=== PATIENT | male | born 1980 | race Two or more races ===

== ENCOUNTER 2018-02-18 10:09 | Outpatient (CLI) | payer OTHER ==
[~2018-02-18] VITALS: Ht 177.8 cm; Wt 95.3 kg
== END 2018-02-18 10:25 | disposition home or self-care (01) ==
LOC: OFIC 805 10:09
DX: R13.19 Other dysphagia (principal); R49.0 Dysphonia; R07.0 Pain in throat; K21.9 Gastro-esophageal reflux disease without esophagitis

== ENCOUNTER 2018-10-11 16:32 | Outpatient (CLI) | payer OTHER ==
[~2018-10-11] VITALS: Ht 152.4 cm; Wt 95.3 kg
== END 2018-10-11 16:45 | disposition home or self-care (01) ==
LOC: OFIC 805 16:32
DX: J34.3 Hypertrophy of nasal turbinates (principal); J30.89 Other allergic rhinitis; R09.81 Nasal congestion; J34.89 Other specified disorders of nose and nasal sinuses

== ENCOUNTER 2023-10-27 06:37 | Day surgery (SDC) | payer OTHER ==
[2023-10-26 09:44] LABS: PH,URINE 5.5 (5.0-8.0); URINE APPEARANCE Clear; URINE BILIRRUBIN Negative (NEGATIVE); URINE BLOOD Negative; URINE COLOR Yellow; URINE GLUCOSE Negative (NEGATIVE); URINE LEUKOCYTE Negative; URINE NITRATE Negative; URINE PROTEIN Negative (NEGATIVE); URINE UROBILINOGEN 0.2 E.U./dl
[2023-10-26 09:46] LABS: URINE BACTERIA 12.5 uL (0.0-1933); URINE RBC 3.5 uL (0.0-20.8)
[2023-10-26 09:53] LABS: URINE EPITHELIAL CELLS 0.4 uL (0.0-38.8)
[2023-10-26 10:01] LABS: HEMOGLOBIN 14.8 g/dL (13-16.00); MEAN CELL VOLUME 82.4 fL (80.0-100.00); MEAN CORPUSCULAR HEMOGLOBIN 27.8 pg (27.00-32.0); MEAN CORPUSCULAR HGB CONC 33.7 g/dl (32.0-36.0); PLATELET COUNT 347 K/uL (150-450); RED BLOOD COUNT 5.34 M/uL (4.00-6.00); RED CELL DISTRIBUTION WIDTH 13.2 % (11.5-14.5)
[2023-10-26 10:19] LABS: INR 0.96; PARTIAL THROMBOPLASTIN TIME 26.6 SECONDS (22.0-34.0); PROTHROMBIN TIME 10.1 SECONDS (9.0-11.5)
[2023-10-26 10:59] LABS: ALBUMIN 4.3 gm/dL (3.4-5.0); BILIRUBIN TOTAL 0.38 mg/dL (0.3-1.2); CALCIUM 9.5 mg/dL (8.5-10.1); CREATININE SERUM 1.01 mg/dL (0.70-1.30); GFR 80.25; GLOBULINA 3.4 G/DL (2.4-3.5); POTASSIUM 4.27 mEq/L (3.5-5.1); TOTAL PROTEIN 7.7 gm/dL (6.4-8.2)
[~2023-10-27] VITALS: Ht 177.8 cm; Wt 95.3 kg
[2023-10-27] MEDS ORDERED: CEFAZOLIN SODIUM 1,000 MG VIAL ONE (14:36)
[2023-10-27] MEDS ORDERED: SUGAMMADEX SODIUM 200 MG/2 ML VIAL IV ONE (16:43)
== END 2023-10-27 19:00 | disposition home or self-care (01) ==
LOC: CIR.AMB 06:37
PROVIDERS: ATTEND Orthopaedic Surgery Hand Surgery
DX: S62.326A Displaced fracture of shaft of fifth metacarpal bone, right hand, initial encounter for closed fracture (principal)